=== PATIENT | female | born 1960 | race Caucasian/White ===

== ENCOUNTER 2018-07-06 07:00 | Observation (INO) | payer OTHER ==
[~2018-07-06] VITALS: Ht 167.6 cm; Wt 61.2 kg
--- NOTE | ~2018-07-06 | D ---
[facility] [place] [place] [address] DISCHARGE SUMMARY Name: RAJ HAUSER Room #: 201-P [facility] Alberto Coombs#: [id number] Admission: 07/06/18 Attend Phys: Markus Renteria Discharge: 07/07/18 Date of : 58 Report #: [id number] THIS REPORT FOR: //name// CC: Markus Renteria Opal Walters DISCHARGE DIAGNOSIS: Coronary artery disease. PROCEDURES PERFORMED: Drug-eluting stent placement to the LAD. HISTORY OF PRESENT ILLNESS: The patient is a 58-year-old with a history of coronary artery disease, status post drug-eluting stent placement to her LAD several years ago. Recently developed worsening chest pain and shortness of breath and had an abnormal nuclear stress test, underwent diagnostic cardiac catheterization and there was a tight lesion just distal to the previous stent placed in the LAD. A new Resolute drug-eluting stent, 2.7 x 12 mm, was placed at that site with good angiographic results. The procedure was without complications. HOSPITAL COURSE: The patient was monitored overnight in the hospital. There were no issues. On telemetry, she remained in sinus rhythm. On the day of discharge, she denied any chest pain or shortness of breath. PHYSICAL EXAMINATION: HEART: Regular rate and rhythm. LUNGS: Clear to auscultation bilaterally. SKIN: Her right groin showed no bruising or hematoma. As such, she was deemed stable for discharge home. DISCHARGE INSTRUCTIONS: Discharge instructions were reviewed. We emphasized the importance of compliance with her aspirin and Effient therapy. All other home medications were unchanged. She will follow up with Dr. Renteria in 4 weeks. By: [id number] Brent Thornton MD /nt
--- NOTE | ~2018-07-06 | CATHLAB ---
[facility] [address] [place] [address] INVASIVE PROCEDURE REPORT Name: RAJ HAUSER Room #: 201-P [facility]#: [id number] Admission: 07/06/18 Attend Phys: Markus Young Discharge: 07/07/18 Date of : 58 Date of Service: 07/11/18 0924 Report #: [id number] THIS REPORT FOR: //name// APPROVED REPORT Study performed: 07/06/2018 09:01:46 Patient Details Patient Status: Out-Patient Room #: The patient is a 58 year-old female Event Personnel Markus Renteria Aoc Director Intelligence Officer, Pablo Rodriguez RN, Chyna Zepeda RTR, Law Ovalle Amber Monitor Procedures Performed Art Access - R femoral artery* 75902 Initial Mod Sed Same Phys/QHP Gr5y 556360 06151 Mod Sed Same Phys/QHP Ea 039171 Left Heart Cath w/or w/o Coronaries [id number] [facility] ABDIAS Place w/wo Plasty Single LAD 680004 Hemostasis w/ Mynx, supervision of conscious sedation Indication Chest pain Procedure Narrative The patient was brought electively to the Cardiac Catheterization Laboratory and was prepped and draped in a sterile manner. The Right Groin^ was infiltrated with 1% Lidocaine subcutaneous anesthesia. A PINNACLE 4FR Sheath #[id number] sheath was inserted into the RFA^. Coronary angiography was performed using coronary diagnostic catheters. The right coronary system was accessed and visualized with a JR 4 catheter. The left coronary system was accessed and visualized with a JL 4 catheter. The left ventricle was accessed and visualized with a Pigtail catheter. Left ventricular/Aortic Valve gradient assessed via catheter pullback. Closure device was deployed with a 6 Fr Mynx. The patient tolerated the procedure well and there were no complications associated with the procedure. There was no hematoma. Intraoperative Conscious Sedation Sedation start time: 10:57 Case end Time: 11:35 Versed 3 mg [facility] [address] [place] [address] INVASIVE PROCEDURE REPORT Name: ANALISARAJ L Room #: 201-P [facility]#: [id number] Admission: 07/06/18 Attend Phys: Markus Young Discharge: 07/07/18 Date of : 58 Date of Service: 07/11/18 0924 Report #: [id number] Fluoro Time: 8.10 minutes Dose: DAP 3378.00 cGycm2 492 mGy Contrast Type and Amount: Omnipaque 100 ml Diagnostic Cath Left Main Left main is of normal origin and caliber with mild proximal tapering which isn't significant. It bifurcates into left anterior descending left circumflex free of high-grade disease. LAD Small to moderate caliber type II vessel which courses in the anterior interventricular sulcus. In the proximal portion had prior centers no significant restenosis. After the first septal rubber and plastics worker there is an eccentric 80-85% lesion identified which appears to be mildly flow-limiting. The LAD then continues in the anterior interventricular sulcus giving rise to small septal perforators and diagonal branches free of high-grade disease as it terminates as a bifurcating vessel at the apex Diagonal 1 Small caliber vessel without significant stenotic lesions Circumflex left circumflex is a moderate caliber vessel which gives rise to an early marginal branch which is small but long in length tortuous in its course free of high-grade disease. The circumflex then continues on giving rise to a second marginal branch that courses along the lateral aspect of the ventricle and terminates as a posterior wall branch free of high-grade disease OM1 Small to moderate caliber vessel without high-grade lesions OM2 Small to moderate caliber vessel with a high-grade lesions as stated above Right Coronary Moderate caliber dominant vessel of normal origin courses in the AV groove giving rise to small RV marginal branch. It then continues on to the crux of the heart were gives rise to small caliber posterior descending artery and artery to the AV node all of which are free of high-grade disease R PDA Small-caliber vessel free of high-grade disease Left Ventriculography Left Ventriculography was not performed. Hemodynamics The aortic pressure is 132/68 mmHg with a mean of 95 mmHg. The left ventricular pressure is 131/10 mmHg with a mean of mmHg. The left ventricular end diastolic pressure is 21 mmHg. PCI Technique Following the termination of intervention. Appropriate the [address] [place] [address] [address] [place] [address] INVASIVE PROCEDURE REPORT Name: HAUSERRAJ L Room #: 201-P [facility] M.R.#: [id number] Admission: 07/06/18 Attend Phys: Markus Young Discharge: 07/07/18 Date of : 58 Date of Service: 07/11/18923 Report #: [id number] system was then upsized to a 6 Frisian sheath. Utilizing standard Kingsley left L4 guide the LAD was cannulated with no 14 wire. This was positioned distal to the lesion. A Medtronic ABDIAS stent sized 2.25 was then advanced and positioned across the lesion. Inflations were obtained a maximal inflation was 16 kvng. There was no loss of side branch distal embolization noted. Wire was removed final pressures were obtained. Patient tolerated procedure well PCI Technique Lesion Percutaneous coronary intervention was performed on the mid left anterior descending artery segment. A LAUNCHER 6FR JL4 #[id number] Guide Catheter was used to engage the ostium. A Luge Wire (J) .014 X 182CM #[id number] Interventional Guidewire was used to cross the lesion. STENT DEPLOYMENT A drug-eluting stent RESOLUTE ANGIE OTW 2.75 X 12 #[id number] was inserted and inflated up to 12.00atm for 16seconds. Additional Inflation: 18.00atm for 6seconds. POST STENT DEPLOYMENT BALLOON DILATION A Balloon catheter Euphora NC RX 3.0 x 8 #[id number] was inserted and inflated up to 18.00atm for 15seconds. Conclusion 1. Coronary disease single vessel with de isacc mid LAD lesion 2. Normal hemodynamics 3. Successful percutaneous revascularization with primary stenting of the proximal mid LAD with a Medtronic ABDIAS stent Recommendations Cardiac Risk Reduction Program Aggressive Medical Therapy Medications Administered Prasugrel <ELECTRONICALLY SIGNED> By: Markus Renteria MD 07/11/18923 3 3 Markus Renteria MD /INF
[~2018-07-06 07:00] MED LIST: ASPIR 8181 MG PO; ASPIRIN325 PO; ATORVASTATIN CA40 MG PO; EFFIENT10 MG PO; HYDROXYCHLOROQ200 M1 PO; LISINOPRIL2.5 MG PO; LOPRESSOR25 PO; MOBIC15 MG PO; NITROGLYCERIN0.4 MG SUBLING; PANTOPRAZOLE SO40 M1 PO; ZALEPLON 10 MG10 M1 PO
[2018-07-06 08:32] VITALS: BP 117/70
[2018-07-06 08:39] LABS: HEMATOCRIT 38.5 % (37.0-47.0); HEMOGLOBIN 12.9 gm/dL (12.0-15.0); MCH 32.8 pg (26.0-34.0); MCHC 33.6 g/dL (28.0-37.0); MCV 97.6 fL (80.0-100.0); RBC 3.95 mil/uL (4.20-5.00); RDW 12.8 % (10.5-14.5); WBC 3.2 thou/uL (4.0-11.0)
[2018-07-06 08:56] LABS: CALCIUM 9.1 mg/dL (8.5-10.1); CREATININE 0.9 mg/dL (0.6-1.0)
[2018-07-06 13:00] VITALS: BP 136/83
[2018-07-06] MEDS ORDERED: HUMIRA40 MG/0.1 SUBQ (13:27)
[2018-07-06] MEDS ORDERED: METHOTREXATE 22.5 MG PO (13:28)
[2018-07-06] MEDS ORDERED: FOLIC ACID1 MG PO (13:30)
[2018-07-06] MEDS ORDERED: IMDUR 30 MG TAB30 M1 PO (13:30)
[2018-07-06 16:00] VITALS: BP 154/77
[2018-07-06 20:30] VITALS: BP 116/65
[2018-07-06 23:24] VITALS: BP 119/70
[2018-07-07 04:45] VITALS: BP 125/75
[2018-07-07 05:21] LABS: HEMATOCRIT 37.7 % (37.0-47.0); HEMOGLOBIN 12.9 gm/dL (12.0-15.0); MCH 33.1 pg (26.0-34.0); MCHC 34.2 g/dL (28.0-37.0); MCV 96.8 fL (80.0-100.0); RBC 3.9 mil/uL (4.20-5.00); RDW 12.9 % (10.5-14.5); WBC 3.8 thou/uL (4.0-11.0)
[2018-07-07 05:23] LABS: CALCIUM 8.7 mg/dL (8.5-10.1); CREATININE 0.8 mg/dL (0.6-1.0); POTASSIUM 4.1 mmol/L (3.5-5.1)
[2018-07-07 07:15] VITALS: BP 139/83
[2018-07-07] MEDS ORDERED: EFFIENT10 MG PO (10:44)
[2018-07-07 11:14] VITALS: BP 139/83
== END 2018-07-07 11:25 | disposition home or self-care (01) ==
LOC: CATH 07:00 → 2N 11:28 → CATH 13:08 → 2N 21:53
PROVIDERS: Internal Medicine
DX: I25.10 Atherosclerotic heart disease of native coronary artery without angina pectoris (principal); E78.5 Hyperlipidemia, unspecified; M06.9 Rheumatoid arthritis, unspecified; Z95.5 Presence of coronary angioplasty implant and graft; Z98.890 Other specified postprocedural states; Z72.89 Other problems related to lifestyle; Z87.891 Personal history of nicotine dependence

== ENCOUNTER 2018-09-30 16:17 | Emergency (ER) | payer OTHER ==
[~2018-09-30] VITALS: Ht 167.6 cm; Wt 59.0 kg
[~2018-09-30 16:17] MED LIST changes: +FOLIC ACID1 MG PO; +HUMIRA40 MG/0.1 SUBQ; +IMDUR 30 MG TAB30 M1 PO; +METHOTREXATE 22.5 MG PO
[2018-09-30] MEDS ORDERED: REPATHA SU140 MG/1 M SUBQ (16:30)
[2018-09-30] MEDS ORDERED: KEFLEX500 M1 PO (17:49)
[2018-09-30 18:12] VITALS: BP 116/66
== END 2018-09-30 18:12 | disposition home or self-care (01) ==
LOC: ER 16:17
DX: R04.0 Epistaxis (principal); M06.9 Rheumatoid arthritis, unspecified; I25.10 Atherosclerotic heart disease of native coronary artery without angina pectoris; E78.5 Hyperlipidemia, unspecified; Z88.2 Allergy status to sulfonamides

== ENCOUNTER 2018-11-29 14:12 | Emergency (ER) | payer OTHER ==
[~2018-11-29] VITALS: Ht 167.6 cm; Wt 59.4 kg
[~2018-11-29 14:12] MED LIST changes: +KEFLEX500 M1 PO; +REPATHA SU140 MG/1 M SUBQ
[2018-11-29 14:33] LABS: URINE BILIRUBIN NEGATIVE (Negative); URINE BLOOD 2+ (Negative); URINE CLARITY CLEAR; URINE COLOR YELLOW; URINE GLUCOSE-RANDOM* NEGATIVE (Negative); URINE KETONES 1+ (Negative); URINE NITRITE-REFLEX NEGATIVE (Negative); URINE PROTEIN (DIPSTICK) 1+ (Negative)
[2018-11-29 14:34] LABS: URINE LEUKOCYTES-REFLEX 1+ (Negative)
[2018-11-29 14:46] LABS: CASTS None Seen /LPF (None Seen); CRYSTALS None Seen /LPF (None Seen); SQUAMOUS 4-10 Moderate /LPF (0-3); URINE WBC-REFLEX 6-15 Few /HPF (0-5)
[2018-11-29 14:47] LABS: BACTERIA-REFLEX 1-9 Few /HPF (None Seen); URINE RBC 3-10 Few /HPF (0-2)
[2018-11-29 15:07] LABS: ABSOLUTE NEUTROPHILS 5.7 thou/uL (1.4-8.2); BASOPHILS 0.2 % (0.0-2.0); HEMATOCRIT 35.5 % (37.0-47.0); HEMOGLOBIN 11.8 gm/dL (12.0-15.0); LYMPHOCYTES 8.3 % (24.0-44.0); MCH 32.6 pg (26.0-34.0); MCHC 33.3 g/dL (28.0-37.0); MCV 97.7 fL (80.0-100.0); MONOCYTES 9.7 % (1.0-8.0); PLATELET COUNT 170 thou/uL (150-400); POLYS 81.8 % (36.0-66.0); RBC 3.63 mil/uL (4.20-5.00)
[2018-11-29 15:12] LABS: CALCIUM 9.1 mg/dL (8.5-10.1); POTASSIUM 3.6 mmol/L (3.5-5.1)
[2018-11-29] MEDS ORDERED: XANAX 0.25 MG0.25 MG PO (15:24)
[2018-11-29] MEDS ORDERED: CIPRO500 MG PO (15:24)
[2018-11-29] MEDS ORDERED: LINZESS290 MCG PO (15:24)
[2018-11-29] MEDS ORDERED: BYSTOLIC 5 MG5 M1 PO (15:25)
[2018-11-29] MEDS ORDERED: HAIR SKIN NAIL1 EACH PO (15:25)
[2018-11-29] MEDS ORDERED: CALCIUM 600 +1 EAC1 PO (15:25)
[2018-11-29] MEDS ORDERED: NITROGLYCERIN0.4 MG SUBLING (15:25)
[2018-11-29] MEDS ORDERED: TYLENOL ARTHRI650 MG PO (15:26)
[2018-11-29] MEDS ORDERED: CO Q-10100 MG PO (15:26)
[2018-11-29] MEDS ORDERED: NORCO 5-325 TA1 EACH PO (19:44)
[2018-11-29 19:56] VITALS: BP 100/52
== END 2018-11-29 19:57 | disposition home or self-care (01) ==
LOC: ER 14:12
PROVIDERS: Emergency Medicine
DX: M54.5 Low back pain (principal); R50.9 Fever, unspecified; R42 Dizziness and giddiness; M06.9 Rheumatoid arthritis, unspecified; I25.10 Atherosclerotic heart disease of native coronary artery without angina pectoris; E78.5 Hyperlipidemia, unspecified; R11.0 Nausea; Z88.2 Allergy status to sulfonamides

== ENCOUNTER 2018-12-08 19:38 | Emergency (ER) | payer OTHER ==
[~2018-12-08] VITALS: Ht 167.6 cm; Wt 59.0 kg
[~2018-12-08 19:38] MED LIST changes: +BYSTOLIC 5 MG5 M1 PO; +CALCIUM 600 +1 EAC1 PO; +CIPRO500 MG PO; +CO Q-10100 MG PO; +HAIR SKIN NAIL1 EACH PO; +LINZESS290 MCG PO; +NORCO 5-325 TA1 EACH PO; +TYLENOL ARTHRI650 MG PO; +XANAX 0.25 MG0.25 MG PO
[2018-12-08 20:54] LABS: ABSOLUTE NEUTROPHILS 4.2 thou/uL (1.4-8.2); BASOPHILS 0.8 % (0.0-2.0); EOSINOPHILS 0.5 % (0.0-3.0); HEMATOCRIT 35.6 % (37.0-47.0); LYMPHOCYTES 28.7 % (24.0-44.0); MCHC 33.8 g/dL (28.0-37.0); MCV 97.5 fL (80.0-100.0); MONOCYTES 6.4 % (1.0-8.0); PLATELET COUNT 354 thou/uL (150-400); POLYS 63.6 % (36.0-66.0); RBC 3.65 mil/uL (4.20-5.00); RDW 13.1 % (10.5-14.5); WBC 6.7 thou/uL (4.0-11.0)
[2018-12-08 21:02] LABS: ANION GAP 8 mmol/L (7-16); BUN 18 mg/dL (7-18); CALCIUM 8.9 mg/dL (8.5-10.1); CHLORIDE 104 mmol/L (98-107); CO2 28 mmol/L (21-32); CREATININE 0.8 mg/dL (0.6-1.0); GLUCOSE 93 mg/dL (74-106); POTASSIUM 3.6 mmol/L (3.5-5.1); SODIUM 140 mmol/L (136-145)
[2018-12-08 21:11] LABS: TROPONIN-I <0.06 ng/mL (<0.06)
[2018-12-08 22:11] VITALS: BP 127/64
--- NOTE | 2018-12-09 13:40 | EKG ---
[place] [place] [address] [place] [address] ELECTROCARDIOGRAM REPORT Name: RAJ HAUSER Room #: [facility]#: [id number] ������������������ Admission: 12/08/18 ������������������ Attend Phys: Discharge: 12/08/18 ������������������ Date of : 58 Report #: [id number] ����������������������������������������������������������������� [id number] THIS REPORT FOR: //name// [facility] ED Test Date: 2018-12-08 Test Time: 19:42:02 Pat Name: RAJ HAUSER Department: Room: Gender: F Sales Program Coordinator: : 1960 Requested By: Markell Soto Order Number: [id number] MD: Alvino Timmons Measurements Intervals [place] Rate: 66 P: -16 [place]: 130 QRS: -18 QRSD: 85 T: 9 QT: 430 QTc: 451 Interpretive Statements Sinus rhythm Anteroseptal infarct, age indeterminate Compared to ECG 11/09/2016 09:05:35 ST and T-wave abnormalities no longer present Electronically Signed On 12-09-2018 13:40:29 CDT by Alvino Timmons [email or web address] ��������������������������������������������� <ELECTRONICALLY SIGNED> ���������������������������������������� By: Alvino Timmons MD, [facility] ��������������������������������������������� 12/09/18 1340 41 41 Alvino Timmons MD, [facility] /EPI
== END 2018-12-08 22:13 | disposition home or self-care (01) ==
LOC: ER 19:38
PROVIDERS: Emergency Medicine
DX: R07.89 Other chest pain (principal); M06.9 Rheumatoid arthritis, unspecified; I25.10 Atherosclerotic heart disease of native coronary artery without angina pectoris; E78.5 Hyperlipidemia, unspecified; Z95.5 Presence of coronary angioplasty implant and graft; Z88.2 Allergy status to sulfonamides

== ENCOUNTER 2020-01-12 19:32 | Emergency (ER) | payer OTHER ==
[~2020-01-12] VITALS: Ht 175.3 cm; Wt 65.8 kg
[2020-01-12 19:47] VITALS: BP 146/81
== END 2020-01-12 20:42 | disposition home or self-care (01) ==
LOC: ER 19:32
DX: S01.81XA Laceration without foreign body of other part of head, initial encounter (principal); I25.10 Atherosclerotic heart disease of native coronary artery without angina pectoris; M06.9 Rheumatoid arthritis, unspecified; Z88.1 Allergy status to other antibiotic agents; Z88.2 Allergy status to sulfonamides; W18.39XA Other fall on same level, initial encounter; Y93.89 Activity, other specified; Y92.89 Other specified places as the place of occurrence of the external cause; Y99.8 Other external cause status